=== PATIENT | female | born 1955 | race Caucasian/White ===

== ENCOUNTER → 2018-08-05 08:53 | Outpatient (CLI) | payer MEDICARE ==
[2015-03-14 12:53] VITALS: BMI 28.7
[~2018-08-05 08:53] MED LIST: BAYER CHEWABLE81 MG PO; KLONOPIN0.5 MG PO; ROBAXIN500 MG PO; TYLENOL #4 W/CO1 TAB PO; ZANTAC150 MG PO; ZOFRAN8 MG PO
--- NOTE | 2018-08-17 13:33 | EC ---
PATIENT:BRANDON POPE DATE OF SERVICE: 08/05/18 SEX: F MEDICAL RECORD: [id number] DATE OF : [birth year] [facility] AGE [facility] PAT[facility]: 63 ADMISSION DATE: 08/05/18 REFERRING PHYSICIAN: INTERPRETING PHYSICIAN: ROSA SELLERS MD ECHOCARDIOGRAM REPORT ECHO CHARGES 4 ECHO COMPLETE Date: 08/05/18 CLINICAL DIAGNOSIS: HTN HX OF CAD ECHOCARDIOGRAPHIC MEASUREMENTS (adult normal given) AC root (d.<3.7cm) 3.5 cm LV Septum d (<1.2 cm> 1.4 cm Valve Excursion 1.6 cm LV Septum (systole) 1.5 cm Left Atria (s.<4.0cm> 3.5 cm LVPW d(<1.2cm) 1.4 cm RV (d.<2.3cm) 3.2 cm LVPW (sytole) 1.6 cm LV diastole(<5.6CM) 4.5 cm MV E-F(>70mm/sec) cm LV systole 3.2 cm LVOT Diameter 1.9 cm MV exc.(>10mm) 1.4 cm Est.ejection fraction (50-75%) % DOPPLER: LVIT cm/sec A 97.0 cm/sec E 49.0 cm/sec LA cm/sec RVSP 31 mmHg LVOT 101 cm/sec AOP1/2T m/s Asc. Ao cm/sec RVOT 49 cm/sec RA cm/sec PA 69 cm/sec AV Gradient Peak 5.01 mmHg AV Mean 2.62 mmHg AV Area 3.4 cm MV Gradient Peak 3.35 mmHg MV Mean 1.38 mmHg MV Area cm COMMENTS: Social Worker Psychiatric: 2 MONICA HAMMER Line Clearance Foreman: 3 Dr. Dowling TAPE# PACS Pericardial Effusion N DATE OF SERVICE: Adequate 2D, color flow and spectral Doppler, and M-Mode. Borderline LVH. LV internal dimension is normal. Wall motion is normal. EF is greater than or equal to 55%. Aortic valve is tricuspid. No evidence of stenosis by Doppler interrogation. Left atrium is normal at 3.5 cm. Mitral valve shows no prolapse. Trace MR. Right-sided chambers grossly normal. Trace TR. TRANSINT:[id number] Voice Confirmation ID: [id number] DOCUMENT ID: [id number] ECHOCARDIOGRAM REPORT [id number] BRANDON POPE,ROSA Ocampo MD at 1333 CC: [id number] DICTATION DATE: 08/15/18 1251 METAL BALER: 08/15/18 1331 DEP CLI 08/05/18 [id number] [place] [address]
== END | disposition home or self-care (01) ==
LOC: D.HCCARDIO 08:53
PROVIDERS: ATTEND Internal Medicine Interventional Cardiology
DX: I10 Essential (primary) hypertension (principal)

== ENCOUNTER → 2019-10-10 10:52 | Outpatient (CLI) | payer MEDICARE ==
[2015-03-14 12:53] VITALS: BMI 28.7
--- NOTE | ~2019-10-10 | EC ---
PATIENT:BRANDON POPE DATE OF SERVICE: 10/10/19 SEX: F MEDICAL RECORD: [id number] DATE OF : [birth year] [facility] AGE OF PATIENT: 64 ADMISSION DATE: 10/10/19 REFERRING PHYSICIAN: INTERPRETING PHYSICIAN: ROSA SELLERS MD ECHOCARDIOGRAM REPORT ECHO CHARGES 4 ECHO COMPLETE Date: 10/09/19 CLINICAL DIAGNOSIS: CAD/ASSSESS EF AND VALVES ECHOCARDIOGRAPHIC MEASUREMENTS (adult normal given) AC root (d.<3.7cm) 3.6 cm LV Septum d (<1.2 cm> 1.3 cm Valve Excursion 2.0 cm LV Septum (systole) 1.4 cm Left Atria (s.<4.0cm> 3.4 cm LVPW d(<1.2cm) 1.2 cm RV (d.<2.3cm) 2.9 cm LVPW (sytole) 1.5 cm LV diastole(<5.6CM) 5.0 cm MV E-F(>70mm/sec) cm LV systole 3.6 cm LVOT Diameter 2.0 cm MV exc.(>10mm) 1.5 cm Est.ejection fraction (50-75%) % DOPPLER: LVIT cm/sec A 80.0 cm/sec E 44.0 cm/sec LA cm/sec RVSP 31 mmHg LVOT 86 cm/sec AOP1/2T 545 m/s Asc. Ao 114 cm/sec RVOT 59 cm/sec RA cm/sec PA 66 cm/sec AV Gradient Peak 5.16 mmHg AV Mean 2.65 mmHg AV Area 2.3 cm MV Gradient Peak 3.23 mmHg MV Mean 1.31 mmHg MV Area cm COMMENTS: Child And Adolescent Therapist: 2 MONICA HAMMER Associate Art Director: 3 Dr. Dowling TAPE# PACS Pericardial Effusion N DATE OF SERVICE: Adequate 2D, color flow imaging, spectral Doppler, and M-Mode. Mild LVH. LV internal dimension is normal. Wall motion is normal. EF is greater than or equal to 55%. Aortic valve is tricuspid. No evidence of stenosis by Doppler interrogation. Mild AI by color flow imaging. Left atrium is normal at 3.4 cm. Mitral valve shows no prolapse. Trace MR. Right-sided chambers are grossly normal. Trace TR. ECHOCARDIOGRAM REPORT [id number] BRANDON POPE TRANSINT:[id number] Voice Confirmation ID: [id number] DOCUMENT ID: [id number] ROSA SELLERS MD CC: [id number] DICTATION DATE: 10/11/19842 METAL MOULDER'S ASSISTANT: 10/11/19 1252 DEP CLI 10/10/19 [facility] [address] [place] [address]
== END | disposition home or self-care (01) ==
LOC: D.HCCECHO 10:52
PROVIDERS: ATTEND Internal Medicine Interventional Cardiology
DX: I25.10 Atherosclerotic heart disease of native coronary artery without angina pectoris (principal)